=== PATIENT | female | born 1980 | race Caucasian/White ===

== ENCOUNTER 2017-08-28 13:39 | Outpatient (CLI) | payer BC ==
--- NOTE | 2017-08-28 15:56 | ULT ---
PELVIC ULTRASOUND: Date: 08-28-17 Comparison: 08-01-17 History: 37-year-old female with vaginal bleeding and decreasing Beta HCG. Technique: Multiplanar grayscale sonographic imaging of the pelvis is obtained with transabdominal a nd endovaginal imaging. FINDINGS: Uterus measures 10.8 x 6.3 x 5.9 cm. Prior imaging demonstrated an intrauterine gestational sac whic h contained a yolk sac but no discrete pole. Today's exam demonstrates an area of decreased ec hogenicity within the endometrial stripe suggesting the gestational sac seen on the prior exam. Agai n, there is no pole seen. The yolk sac seen on the prior exam is not seen on this exam. The pr esumed gestational sac demonstrates a diameter of 1.6 cm, which would correlate with a 6 week 3 day gestation, unchanged when compared to the 08-01-17 study. These findings, in combination with a decre asing Beta HCG, suggests failed /spontaneous . The right ovary measures 2.9 x 1.6 x 1.2 cm and the left ovary measures 3.4 x 2.2 x 1.7 cm. No adnex al mass. No free fluid. IMPRESSION: 1. Hypoechoic structure within the endometrial canal suggests a stable gestational sac without a fet al pole or yolk sac. Findings suggests spontaneous . POS: ARNULFO
== END 2017-08-28 13:40 | disposition home or self-care (01) ==
LOC: SCSULT 13:39
PROVIDERS: ATTEND Family Medicine
DX: N91.2 Amenorrhea, unspecified (principal)
CPT/HCPCS: 76856